=== PATIENT | female | born 1985 | race Caucasian/White ===

== ENCOUNTER 2019-11-12 | Emergency (ER) | payer BC ==
[2019-11-12] MEDS ORDERED: KEFLEX500 M1 PO (20:06)
[2019-11-12] MEDS ORDERED: DIFLUCAN100 M1 PO (20:06)
== END 2019-11-12 20:16 | disposition home or self-care (01) | DRG 914 ==
DX: S61.041A Puncture wound with foreign body of right thumb without damage to nail, initial encounter (principal); W25.XXXA Contact with sharp glass, initial encounter; W45.8XXA Other foreign body or object entering through skin, initial encounter; Y93.E9 Activity, other interior property and clothing maintenance; Y92.009 Unspecified place in unspecified non-institutional (private) residence as the place of occurrence of the external cause

== ENCOUNTER 2020-05-26 20:32 | Emergency (ER) | payer BC ==
[~2020-05-26] VITALS: Ht 154.9 cm; Wt 52.2 kg
[~2020-05-26 20:32] MED LIST: DIFLUCAN100 M1 PO; KEFLEX500 M1 PO
[2020-05-26] MEDS ORDERED: NAPROXEN500 MG PO (21:22)
[2020-05-26 21:33] VITALS: BP 112/70
== END 2020-05-26 21:33 | disposition home or self-care (01) | DRG 563 ==
LOC: ED 20:32
DX: S63.657A Sprain of metacarpophalangeal joint of left little finger, initial encounter (principal); W22.8XXA Striking against or struck by other objects, initial encounter; Y93.B9 Activity, other involving muscle strengthening exercises; Y92.39 Other specified sports and athletic area as the place of occurrence of the external cause